=== PATIENT | male | born 1965 | race Caucasian/White ===

== ENCOUNTER 2023-02-06 12:24 | Emergency (ER) | payer BC, SELFPAY ==
[2023-02-06] VITALS (22 sets, daily range): BP systolic 112–158; BP diastolic 58–78; PULSE 59–73; RESP 15–25; TEMP 36.8; O2SAT 94–98; BMI 26.6
--- NOTE | 2023-02-06 12:30 | DI.RAD.S_ITS ---
PROCEDURE: XR CHEST 1V INDICATIONS: chest pain TECHNIQUE: One view of the chest was acquired. COMPARISON: None. FINDINGS: Surgical changes and devices: None. Lungs and pleura: Lungs are clear. No pleural effusions or pneumothorax. Mediastinum: Mediastinal contours appear normal. Heart size is normal. Bones and chest wall: No suspicious bony lesions. Overlying soft tissues appear unremarkable. IMPRESSION: Portable chest within normal limits for age. Approved by: Sage Mcgowan M.D. on 02/06/2023 at 13:23
[2023-02-06 12:56] LABS: Add Manual Diff / Slide Review NO; Basophils Absolute Auto 100 /uL (0-100); Basophils Percent Auto 0.9 % (0-2); Eosinophils Absolute Auto 100 /uL (0-450); Eosinophils Percent Auto 1.5 % (2-4); Hematocrit 40.3 % (41-53); Lymphocytes Absolute Auto 2300 /uL (1100-4500); Lymphocytes Percent Auto 35.4 % (25-40); Mean Corpuscular HGB Conc 34.8 % (30-36); Mean Corpuscular Hemoglobin 32.5 PG (26-34); Mean Corpuscular Volume 93.5 fL (80-100); Monocytes Absolute Auto 400 /uL (0-900); Monocytes Percent Auto 5.6 % (3-14); Neutrophils Absolute Auto 3700 /uL (1500-7000); Neutrophils Percent Auto 56.6 % (50-75); Platelet Count 258 X10^3/uL (150-400); Red Blood Cell Count 4.31 X10^6/uL (4.5-5.9); Red Cell Distribution Width 13.5 % (11.6-14.8); White Blood Cell Count 6.6 X10^3/uL (4.5-11.0)
--- NOTE | 2023-02-06 13:02 | PC.NURSE ---
Patient reports having confusion today while at work on the [employer] walking between offices. Pt felt dizzy, nauseated and sweating. He thought his blood sugar might be low and went to get his lunch out and found himself opening the broom closet at work instead of going to the fridge. Pt told his coworker to keep an eye on him, and while eating patient passed out and had a LOC for aproximately 45seconds per EMS. Pt had a similar event over a year ago while living in the . He got up to urinate at night and fell over, passing out. He did go to the ER by ambulance at that time and the tests did not come up with anything. Since then he has moved here for the past 3 months and needs to find another primary care provider.
[2023-02-06 13:06] LABS: INR 1.1 (0.9-1.3); Prothrombin Time 12.1 SECONDS (10.1-12.7)
[2023-02-06 13:09] LABS: PTT Partial Thromboplastin Tim 32 SECONDS (26-36)
[2023-02-06 13:11] LABS: Alanine Aminotransferase 27 IU/L (<50); Albumin 4.3 g/dL (3.5-5.0); Albumin Globulin Ratio 1.4 (1.0-2.8); Alkaline Phosphatase 36 U/L (38-126); Aspartate Aminotransferase 27 IU/L (17-59); BUN Creatinine Ratio 20.7 (6-22); Bilirubin Total 0.2 mg/dL (0.2-1.3); Blood Urea Nitrogen 18 mg/dL (9-20); Calcium 9.2 mg/dL (8.4-10.2); Carbon Dioxide 27 mmol/L (22-32); Chloride 102 mmol/L (98-107); Creatine Kinase 104 U/L (55-170); Estimated Glomerular Filt Rate > 60 mL/min (>60); Globulin 3.1 g/dL (1.7-4.1); Glucose 97 mg/dL (70-100); HEMOLYSIS 16 (0-50); Lipase 68 U/L (23-300); Potassium 3.9 mmol/L (3.4-5.1); Sodium 136 mmol/L (137-145); Total Protein 7.4 g/dL (6.3-8.2)
[2023-02-06 13:21] LABS: Ethanol (ETOH) < 10 mg/dL
[2023-02-06 13:22] LABS: Troponin I < 0.012 ng/mL (0.01-0.034)
[2023-02-06] MEDS: ASPIRIN 81 MG CHEW TAB 324 MG PO (13:37)
--- NOTE | 2023-02-06 14:57 | ED.SYNCOPE ---
HPI - Syncope General Chief Complaint: Syncope Stated Complaint: syncope Time Seen by Provider: 02/06/23 14:52 Source: patient and EMS Mode of arrival: EMS Limitations: no limitations History of Present Illness HPI narrative: This is a 57-year-old male with no reported medical issues who states he had sounds like a syncopal episode earlier today. Patient states he felt sort of queasy and uneasy while he was walking across an [employer] [place] [employer] had it for the bathroom. States he decided to turn around and go back to his seat. He grabs food and something to drink sat down on his desk told his office meet to keep an eye on him as he did not feel well and then faded out in front of them and had a loss of consciousness for approximately 45 seconds at most. Patient states afterwards he awakened states he can versus for a couple seconds did not recall that but then has since felt back to normal. He states no headache at any time, no chest pain, no shortness of breath. He states he did get very diaphoretic and was pale immediately afterwards. He felt nauseated but never vomited. Denies any issues with bowel movements he is had regular bowel movements with no black or bloody stools. No dysuria urgency or frequency. Has not had any incontinence. Patient states he has had 3 episodes total in his lifetime with somewhat similar circumstances. He states he did have about 150 mL of red wine last night, he rode his bike to work and was headed to the bathroom. He states other episode he would also had red wine the night before and ridden his bike to work was headed to the bathroom in the middle of the night and passed out. Patient states no daily prescriptions. Had prior hernia repair remotely. No known drug allergies. No tobacco, has alcohol every couple months did have about 350 mL red wine last night. No recreational drugs. States dad may have had an arrhythmia he is not aware of any other medical issues no family members with recurrent syncope or sudden noted. Related Data Allergies Allergy/AdvReac Type Severity Reaction Status Date / Time No Known Drug Allergies Allergy Verified 02/06/23 12:30 Review of Systems Review of Systems ROS Unobtainable: All systems reviewed & are unremarkable except as noted in HPI and below Patient History Social History Smoking Status: Former smoker Smoking Status: Former smoker alcohol intake frequency: 0-2 drinks per day Exam Narrative Exam Narrative: GEN: well nourished, well appearing male, alert and oriented x 3, patient appears to be in mild distress. HEENT: Atraumatic, pupils are equal round reactive to light, extraocular movements are intact, nares are clear, there is no conjunctival pallor. Throat is clear without any exudates, erythema, tonsillar enlargement or uvular deviation HEART: Regular rate and rhythm without murmur, clicks, rubs. LUNGS:Lungs clear to auscultation, no wheezes, rales, crackles, chest moves symmetrically ABD:bowel sounds normal, soft, non-tender, no guarding, rebound, rigidity, no masses noted, no hepatosplenomegaly :No CVA tenderness MSCL: Non-tender, no muscle atrophy, muscles strength 5/5 upper and lower extremities, full range of motion, normal gait NEURO:CN 2-12 intact, sensation normal, normal speech. SKIN: Rash, erythema or other skin changes noted Initial Vital Signs Initial Vital Signs: Vital Signs Pulse Rate 60 02/06/23 12:27 Pulse Oximetry 98 02/06/23 12:27 Course Orders Ordered: ED Orders 02/06/23 12:30 XR chest 1V Stat EKG-12 Lead Stat 02/06/23 12:44 Complete Blood Count AUTO DIFF Stat Comprehensive Metabolic Panel Stat Lipase Stat Magnesium Stat PTT Partial Thromboplastin Sukhjinder Stat Prothrombin Time INR Stat Troponin & CK Cardiac Panel Stat 02/06/23 13:13 Ethanol (ETOH) Stat 02/06/23 15:07 Urine Drug Screen, Rapid Stat 02/06/23 15:45 CT head/brain wo con Stat Discontinued Medications Aspirin (Aspirin 81 Mg Chew Tab) 324 mg PO NOW ONE Stop: 02/06/23 12:31 Last Admin: 02/06/23 13:37 Dose: 324 mg Documented By: RB Vital Signs Vital signs: Vital Signs - 8 hr 02/06/23 12:27 02/06/23 12:28 02/06/23 12:28 Temperature Pulse Rate 60 60 Respiratory Rate Blood Pressure 142/78 H Pulse Oximetry 98 96 Oxygen Delivery Method 02/06/23 12:29 02/06/23 12:32 02/06/23 12:40 Temperature 98.2 F Pulse Rate 61 68 Respiratory Rate 18 21 Blood Pressure 142/78 H 158/78 H Pulse Oximetry 96 Oxygen Delivery Method Room Air 02/06/23 12:40 02/06/23 13:00 02/06/23 13:00 Temperature Pulse Rate 67 67 Respiratory Rate 15 19 Blood Pressure 135/69 Pulse Oximetry 97 97 Oxygen Delivery Method Room Air 02/06/23 13:29 02/06/23 13:30 02/06/23 13:30 Temperature Pulse Rate 66 64 Respiratory Rate 17 17 Blood Pressure 118/66 Pulse Oximetry 95 95 Oxygen Delivery Method 02/06/23 13:45 02/06/23 13:45 02/06/23 14:00 Temperature Pulse Rate 73 Respiratory Rate 17 Blood Pressure 127/68 114/66 Pulse Oximetry 96 Oxygen Delivery Method 02/06/23 14:00 02/06/23 14:15 02/06/23 14:15 Temperature Pulse Rate 69 68 Respiratory Rate 17 18 Blood Pressure 120/73 Pulse Oximetry 95 96 Oxygen Delivery Method 02/06/23 14:30 02/06/23 14:30 02/06/23 14:45 Temperature Pulse Rate 67 65 Respiratory Rate 25 H 18 Blood Pressure 120/72 Pulse Oximetry 96 95 Oxygen Delivery Method 02/06/23 14:45 02/06/23 15:08 02/06/23 15:08 Temperature Pulse Rate 66 Respiratory Rate 17 Blood Pressure 119/68 115/58 L Pulse Oximetry 94 Oxygen Delivery Method Room Air 02/06/23 15:15 02/06/23 15:15 02/06/23 15:30 Temperature Pulse Rate 67 Respiratory Rate 17 Blood Pressure 118/60 114/59 L Pulse Oximetry 95 Oxygen Delivery Method 02/06/23 15:30 02/06/23 15:45 02/06/23 15:45 Temperature Pulse Rate 69 67 Respiratory Rate 15 19 Blood Pressure 125/67 Pulse Oximetry 96 95 Oxygen Delivery Method Room Air 02/06/23 15:55 02/06/23 15:55 02/06/23 16:00 Temperature Pulse Rate 72 Respiratory Rate 18 Blood Pressure 127/70 138/69 Pulse Oximetry 96 Oxygen Delivery Method 02/06/23 16:00 02/06/23 16:15 02/06/23 16:15 Temperature Pulse Rate 67 65 Respiratory Rate 18 16 Blood Pressure 128/67 Pulse Oximetry 95 96 Oxygen Delivery Method 02/06/23 16:30 02/06/23 16:30 02/06/23 16:45 Temperature Pulse Rate 59 L 67 Respiratory Rate 17 Blood Pressure 112/70 Pulse Oximetry 97 96 Oxygen Delivery Method Room Air 02/06/23 16:45 Temperature Pulse Rate Respiratory Rate Blood Pressure 117/72 Pulse Oximetry Oxygen Delivery Method MDM - Syncope Lab Data 02/06/23 12:44 02/06/23 12:44 Labs: Lab Results 02/06/23 02/06/23 02/06/23 Range/Units 12:44 13:13 15:07 WBC 6.6 (4.5-11.0) X10^3/uL RBC 4.31 L (4.5-5.9) X10^6/uL Hgb 14.0 (13.5-17.5) g/dL Hct 40.3 L (41-53) % MCV 93.5 (80-100) fL MCH 32.5 (26-34) PG MCHC 34.8 (30-36) % RDW 13.5 (11.6-14.8) % Plt Count 258 (150-400) X10^3/uL Neut % (Auto) 56.6 (50-75) % Lymph % (Auto) 35.4 (25-40) % Labette % (Auto) 5.6 (3-14) % Eos % (Auto) 1.5 L (2-4) % Baso % (Auto) 0.9 (0-2) % Neut # (Auto) 3700 (5851-0569) /uL Lymph # (Auto) 2300 (2002-3188) /uL Labette # (Auto) 400 (0-900) /uL Eos # (Auto) 100 (0-450) /uL Baso # (Auto) 100 (0-100) /uL PT 12.1 (10.1-12.7) SECONDS INR 1.1 (0.9-1.3) APTT 32 (26-36) SECONDS Sodium 136 L (137-145) mmol/L Potassium 3.9 (3.4-5.1) mmol/L Chloride 102 (98-107) mmol/L Carbon Dioxide 27 (22-32) mmol/L BUN 18 (9-20) mg/dL Creatinine 0.87 (0.66-1.25) mg/dL Estimated GFR > 60 (>60) mL/min BUN/Creatinine Ratio 20.7 (6-22) Glucose 97 (70-100) mg/dL Calcium 9.2 (8.4-10.2) mg/dL Magnesium 2.0 (1.6-2.3) mg/dL Total Bilirubin 0.2 (0.2-1.3) mg/dL AST 27 (17-59) IU/L ALT 27 (<50) IU/L Alkaline Phosphatase 36 L (38-126) U/L Total Creatine Kinase 104 (55-170) U/L Troponin I < 0.012 (0.01-0.034) ng/mL Total Protein 7.4 (6.3-8.2) g/dL Albumin 4.3 (3.5-5.0) g/dL Globulin 3.1 (1.7-4.1) g/dL Albumin/Globulin Ratio 1.4 (1.0-2.8) Lipase 68 (23-300) U/L U Opiates 300ng/mL cut Negative (Negative) Ur Oxycodone Screen Negative (Negative) Urine Methadone Screen Negative (Negative) Ur Barbiturates Screen Negative (Negative) U Tricyclic Antidepress Negative (Negative) Ur Phencyclidine Scrn Negative (Negative) Ur Amphetamines Screen Negative (Negative) U Methamphetamines Scrn Negative (Negative) Ur MDMA Scrn (Ecstasy) Negative (Negative) U Benzodiazepines Scrn Negative (Negative) Urine Cocaine Screen Negative (Negative) U Marijuana (THC) Screen Negative (Negative) Ethyl Alcohol < 10 ( - 10) mg/dL Urine Dip Bedside Urine Glucose Negative Bedside Urine Bilirubin - Negative Bedside Urine Ketone ++ 40 Urine Specific Cutler 1.015 Bedside Urine Occult Blood - Negative Bedside Urine pH 6.5 Bedside Urine Protein - Negative Bedside Urine Urobilinogen - Negative Bedside Urine Nitrite - Negative Bedside Urine Leukocytes - Negative Esterase Imaging Data Chest x-ray: Radiologist's Impression: [address] [address] XRay Report Signed Patient: Alfred Thacker MR#: [id number] : 1965 Acct:[id number] Age/Sex: 57 / M Date of Service: 02/06/23 Loc: ED Accession Number: [id number] Procedure: XR chest 1V Ordering Provider: Chante Alvarez D.O. PROCEDURE: XR CHEST 1V INDICATIONS: chest pain TECHNIQUE: One view of the chest was acquired. COMPARISON: None. FINDINGS: Surgical changes and devices: None. Lungs and pleura: Lungs are clear. No pleural effusions or pneumothorax. Mediastinum: Mediastinal contours appear normal. Heart size is normal. Bones and chest wall: No suspicious bony lesions. Overlying soft tissues appear unremarkable. IMPRESSION: Portable chest within normal limits for age. Approved by: Sage Mcgowan M.D. on 02/06/2023 at 13:23 CT scan - head: Radiologist's Impression: Alfred Thacker??57??M??1965 ? Allergy/Adv: No Known Drug Allergies (More??) Close Head CT (Signed) Lit Thacker - 02/06/23 Chest X-Ray (Signed) Sage Mcgowan - 02/06/23 [place] [address] CT Scan Report Signed Patient: Alfred Thacker MR#: [id number] : 1965 Acct:[id number] Age/Sex: 57 / M Date of Service: 02/06/23 Loc: ED Accession Number: [id number] Procedure: CT head/brain wo con Ordering Provider: Chante Alvarez D.O. PROCEDURE: CT HEAD/BRAIN WO CON INDICATIONS: syncope vs other. TECHNIQUE: Noncontrast 4.5 mm thick angled axial sections acquired from the foramen magnum to the vertex, with coronal and sagittal reformats. For radiation dose reduction, the following was used: automated exposure control, adjustment of mA and/or kV according to patient size. COMPARISON: None. FINDINGS: Image quality: Excellent. CSF spaces: Basal cisterns are patent. No extra-axial fluid collections. Ventricles are normal in size and shape. Brain: No midline shift. No intracranial masses or hemorrhage. Malloy-white matter interface is normal. Skull and face: Calvarium and visualized facial bones are intact, without suspicious lesions. Sinuses: Visualized sinuses and mastoids are clear. IMPRESSION: No acute intracranial process Dictated by: Lit Thacker M.D. on 02/06/2023 at 16:01 Approved by: Lit Thacker M.D. on 02/06/2023 at 16:02 ECG Data Attestation: I personally reviewed and interpreted this ECG as follows: Prior ECG tracings: not available for review Interpretation: Sinus rhythm rate of 73 UT 194 QRS of 90 QTC of 438. No acute ST elevation or depression noted. No priors for comparison. MDM Narrative Medical decision making narrative: 57-year-old male with likely syncopal episode. He is had 3 episodes total in his lifetime typically when he is upright, ambulating on the way the bathroom or in the bathroom. Patient states today he felt sort of queasy and unwell but did not have any other symptoms had up to 45 seconds loss of consciousness. He states that the individual with him had gone to the other room to grab a phone to call for help when they came back he was alert again. Patient states he got diaphoretic was pale was nauseated never vomited but did not have any headache no chest pain or shortness of breath. I EMS noted glucose was 103 he was reported hypertensive in the field at 160. Patient has had appropriate blood pressures here in the department no arrhythmias. He is ambulated without issue. He states he feels back to normal. CBC, coags, CMP, LFTs, troponin ETOH round negative. Chest x-ray showed no acute change. Patient's EKG does not have any specific change, no priors for comparison. Discussed with patient he did have 1 episode of incontinence during the prior times but no other seizure-like activity. We will obtain head CT as he does not think he is ever had this before. This shows no acute change on Head Ct. Patient felt appropriate for discharge home. All questions answered. Discharge Plan Departure Patient Disposition: Home Clinical Impression: Syncope Instructions: DI for Syncope in Adults (Fainting) Activity Restrictions/Additional Instructions: Please follow-up with your physician for recheck, discussed with your physician about having a Holter monitor or ZIO patch to check for rhythm changes. Please return for new recurrent episodes, severe headaches, new chest pain, shortness of breath, current episodes of lightheadedness or passing out, diaphoresis or sweatiness, persistent vomiting, loss of bowel or bladder control, altered mental status or other new or concerning changes. Referrals: Miscellaneous,Doctor, MD [Primary Care Provider] - Stand Alone Forms: Patient Portal/API
[2023-02-06 15:23] LABS: UR Morphine/Opiate cutoff 300 Negative (Negative); Ur Creatinine Normal (Normal); Ur Specific Gravity Normal (Normal); Urine Amphetamines Negative (Negative); Urine Barbiturates Negative (Negative); Urine Benzodiazepines Negative (Negative); Urine Cocaine Negative (Negative); Urine MDMA Negative (Negative); Urine Methadone Negative (Negative); Urine Methamphetamines Negative (Negative); Urine Oxycodone Negative (Negative); Urine Phencyclidine Negative (Negative); Urine Tetrahydrocannabinol Negative (Negative); Urine Tricyclic Antidepressant Negative (Negative); Urine pH Normal (Normal)
--- NOTE | 2023-02-06 15:45 | DI.CT.S_ITS ---
PROCEDURE: CT HEAD/BRAIN WO CON INDICATIONS: syncope vs other. TECHNIQUE: Noncontrast 4.5 mm thick angled axial sections acquired from the foramen magnum to the vertex, with coronal and sagittal reformats. For radiation dose reduction, the following was used: automated exposure control, adjustment of mA and/or kV according to patient size. COMPARISON: None. FINDINGS: Image quality: Excellent. CSF spaces: Basal cisterns are patent. No extra-axial fluid collections. Ventricles are normal in size and shape. Brain: No midline shift. No intracranial masses or hemorrhage. Malloy-white matter interface is normal. Skull and face: Calvarium and visualized facial bones are intact, without suspicious lesions. Sinuses: Visualized sinuses and mastoids are clear. IMPRESSION: No acute intracranial process Dictated by: Lit Thacker M.D. on 02/06/2023 at 16:01 Approved by: Lit Thacker M.D. on 02/06/2023 at 16:02
== END 2023-02-06 17:15 | disposition home or self-care (01) ==
PROVIDERS: Emergency Provider Emergency Medicine
DX: R55 Syncope and collapse (principal); R07.9 Chest pain, unspecified
CPT/HCPCS: 36415; 70450; 71045; 80053; 80305; 80320; 81003; 82550; 83690; 83735; 84484; 85025; 85610; 85730; 93005; 99284

== ENCOUNTER → 2023-09-08 14:39 | Outpatient (CLI) | payer OTHER, SELFPAY ==
[2023-09-08 15:21] LABS: Add Manual Diff / Slide Review NO; Basophils Absolute Auto 100 /uL (0-100); Basophils Percent Auto 1.2 % (0-2); Eosinophils Absolute Auto 200 /uL (0-450); Eosinophils Percent Auto 2.9 % (2-4); Hematocrit 39.7 % (41-53); Hemoglobin 13.9 g/dL (13.5-17.5); Lymphocytes Absolute Auto 2700 /uL (1100-4500); Lymphocytes Percent Auto 40.5 % (25-40); Mean Corpuscular HGB Conc 35.1 % (30-36); Mean Corpuscular Hemoglobin 33.8 PG (26-34); Mean Corpuscular Volume 96.4 fL (80-100); Monocytes Absolute Auto 500 /uL (0-900); Monocytes Percent Auto 7.7 % (3-14); Neutrophils Absolute Auto 3200 /uL (1500-7000); Neutrophils Percent Auto 47.7 % (50-75); Platelet Count 264 X10^3/uL (150-400); Red Blood Cell Count 4.11 X10^6/uL (4.5-5.9); Red Cell Distribution Width 13.6 % (11.6-14.8); White Blood Cell Count 6.7 X10^3/uL (4.5-11.0)
[2023-09-08 15:29] LABS: Hemoglobin A1C% w Est Avg Glu 5.3 % (4.0-6.0)
[2023-09-08 15:57] LABS: Alanine Aminotransferase 17 IU/L (<50); Albumin 4.6 g/dL (3.5-5.0); Albumin Globulin Ratio 1.8 (1.0-2.8); Alkaline Phosphatase 51 U/L (38-126); Aspartate Aminotransferase 26 IU/L (17-59); Bilirubin Total 0.5 mg/dL (0.2-1.3); Blood Urea Nitrogen 17 mg/dL (9-20); Calcium 9.2 mg/dL (8.4-10.2); Carbon Dioxide 31 mmol/L (22-32); Chloride 103 mmol/L (98-107); Cholesterol 167 mg/dL (140-199); Estimated Glomerular Filt Rate > 60 mL/min (>60); Globulin 2.6 g/dL (1.7-4.1); Glucose 99 mg/dL (70-100); HDL Cholesterol 72 mg/dL (40-60); HEMOLYSIS < 15 (0-50); LDL Cholesterol Calculated 67 mg/dL (<100); Potassium 3.9 mmol/L (3.4-5.1); Sodium 140 mmol/L (137-145); Total Protein 7.2 g/dL (6.3-8.2); Triglycerides 142 mg/dL (35-150)
[2023-09-08 16:26] LABS: Prostate Specific Antigen Scrn 1.07 ng/mL (0.1-4.0)
[2023-09-08 19:53] LABS: HIV 1 & 2 Ab/Ag 4th Gen Combo NEGATIVE (NEGATIVE); Hep C Virus Ab w/Reflex Quant NEGATIVE s/c (NEGATIVE)
== END ==
PROVIDERS: PCP Family Medicine; Referring Provider Family Medicine; Visit Provider Family Medicine
DX: Z11.4 Encounter for screening for human immunodeficiency virus [HIV] (principal); Z11.59 Encounter for screening for other viral diseases; Z12.5 Encounter for screening for malignant neoplasm of prostate; R55 Syncope and collapse; E78.5 Hyperlipidemia, unspecified
CPT/HCPCS: 80053; 80061; 83036; 85025; 86803; 87389; G0103